=== PATIENT | male | born 1940 | race Caucasian/White ===

== ENCOUNTER → 2017-02-09 | Outpatient (CLI) | payer OTHER ==
[2017-02-09 17:57] LABS: ALT/SGPT 28 U/L (12-78); BLOOD UREA NITROGEN 18 mg/dl (7-18); BUN/CREATININE RATIO 20.5 (10-20); CALCIUM 8.7 mg/dl (8.5-10.1); CARBON DIOXIDE 27 mmol/L (21-32); CHLORIDE 109 mmol/L (98-107); CREATININE 0.86 mg/dl (0.60-1.40); GLUCOSE,FASTING 109 mg/dl (70-99); POTASSIUM 4.1 mmol/L (3.5-5.1); SODIUM 142 mmol/L (136-145)
[2017-02-09 18:02] LABS: ALB/GLOB RATIO 1.1 (0.9-2); ALKALINE PHOSPHATASE 65 U/L (45-117); AST/SGOT 20 U/L (15-37)
--- NOTE | 2017-02-15 11:33 | CODING QUERY MEDICAL NECESSITY ---
CQSUPPORTING DIAGNOSIS NEEDED A supporting diagnosis is required for the test/procedure performed on this patient in order for us to be reimbursed by the patient's insurance. Please provide a supporting diagnosis for the following test/procedure listed below next to the test name along with your signature. *If there is no additional diagnosis for this patient that would support the following test/procedure please document that below next to the test/procedure. Test(s)/Procedure(s) that require a supporting diagnosis: DOS 02/09/17 PROSTATE SPECIFIC ANTIGEN (PSA) ORDERED BY [facility] Provider Signature: Date: Thank you Danay Vickers [facility] Information Management Once completed, please kindly fax back to [phone] For questions please call [phone]
== END | disposition home or self-care (01) ==
LOC: C.LABPBG 11:10
PROVIDERS: ATTEND Physician Assistant
DX: Z00.00 Encounter for general adult medical examination without abnormal findings (principal); Z12.5 Encounter for screening for malignant neoplasm of prostate

== ENCOUNTER → 2017-06-08 | Outpatient (CLI) | payer OTHER ==
--- NOTE | 2017-06-08 14:12 | DIAGNOSTIC IMAGING REPORT ---
AP PELVIS AND LEFT HIP 3 VIEWS CLINICAL HISTORY: M79.606 Leg pain, posterior left hip pain COMPARISON STUDY: No previous studies for comparison. FINDINGS: No fractures are visualized. There are minor osteoarthritic changes. There are no erosive or destructive changes. IMPRESSION: Minor osteoarthritic change. No evidence of acute fracture. No destructive lesions are visualized. Electronically signed by: Aleks Pickard M.D. 06/08/2017 2:11 PM Dictated Date/Time: 06/08/2017 2:10 PM
--- NOTE | 2017-06-08 14:14 | DIAGNOSTIC IMAGING REPORT ---
L KNEE 3 VIEWS CLINICAL HISTORY: M79.606 Leg pain, posteriorleft LEFT KNEE PAIN COMPARISON: None. DISCUSSION: No acute fractures are visualized. There are moderately advanced osteoarthritic changes most pronounced the medial joint compartment patellofemoral joint. IMPRESSION: 1. Moderately advanced osteoarthritic change 2. No acute fractures Electronically signed by: Aleks Pickard M.D. 06/08/2017 2:12 PM Dictated Date/Time: 06/08/2017 2:11 PM
--- NOTE | 2017-06-08 14:15 | DIAGNOSTIC IMAGING REPORT ---
L-SPINE MIN 4 VIEWS ROUTINE CLINICAL HISTORY: Left posterior leg pain. COMPARISON: None FINDINGS: There is 2 mm of anterolisthesis of L4 and L5. This likely due to facet arthrosis. There is slight concavity of the superior endplate of L2 without significant vertebral body height loss. This is chronic. Moderate disc space narrowing is noted L4-L5 and L5-S1. There is moderate to severe multilevel lower lumbar spine facet arthrosis. IMPRESSION: 1. No acute lumbar spine fracture. 2. Slight concavity of the right aspect of the L2 vertebral body. This could reflect a Schmorl's node or less likely an old mild compression deformity. 3. Moderate disc space narrowing and osteophytosis, most pronounced at L4-L5 and L5-S1. 4. Moderate to severe multilevel facet arthrosis. Electronically signed by: Femi Cartagena M.D. 06/08/2017 2:14 PM Dictated Date/Time: 06/08/2017 2:10 PM
== END | disposition home or self-care (01) ==
LOC: C.RAD 13:10
PROVIDERS: ATTEND Physician Assistant
DX: M79.606 Pain in leg, unspecified (principal); M99.73 Connective tissue and disc stenosis of intervertebral foramina of lumbar region; M25.78 Osteophyte, vertebrae